=== PATIENT | female | born 1945 | race Caucasian/White ===

== ENCOUNTER → 2023-10-29 09:13 | Outpatient (REF) | payer MEDICARE, OTHER, SELFPAY ==
[2023-10-29 13:16] LABS: % Basophils 0.6 % (0-2); % Eosinophils 1.5 % (0-6); % Immature Granulocytes 0.2 % (0-0.5); % Lymphocytes 26.9 % (20.5-51.1); % Monocytes 6.6 % (1.7-9.3); % Neutrophils 64.2 % (42.2-75.2); Absolute Eosinophils 0.1 10^3/uL (0-0.7); Absolute Lymphocytes 1.7 10^3/uL (1.2-3.4); Absolute Monocytes 0.4 10^3/uL (0.1-0.6); Absolute Neutrophils 4.2 10^3/uL (1.4-6.5); Hemoglobin 14.8 g/dL (12.0-16.0); Mean Corp Hgb Conc. 34.4 g/dL (33.0-37.0); Mean Corpuscular Hgb 32.8 pg (27.0-31.0); Mean Corpuscular Volume 95.3 fL (81.0-99.0); Mean Platelet Volume 9.9 fL (7.4-10.4); Nucleated Red Blood Cells % 0 %; Platelet Count 214 10^3/uL (130-400); Red Blood Cell Count 4.51 10^6/uL (4.20-5.40); Red Cell Dist. Width 12.4 % (11.5-14.5); White Blood Cell Count 6.5 10^3/uL (4.8-10.8)
[2023-10-29 13:26] LABS: ALT (SGPT) 16 U/L (0-35); AST (SGOT) 24 U/L (14-36); Albumin 3.3 g/dl (3.5-5.0); Alkaline Phosphatase 49 U/L (38-126); Blood Urea Nitrogen 18 mg/dl (7-17); Calcium 9.3 mg/dl (8.4-10.2); Carbon Dioxide 28 mmol/L (22-30); Chloride 105 mmol/L (98-107); Glucose 84 mg/dl (70-99); HDL Cholesterol 50 mg/dl; LDL Cholesterol, Calculated 80 mg/dl; Potassium 3.8 mmol/L (3.5-5.1); Sodium 139 mmol/L (135-145); Total Bilirubin 0.7 mg/dl (0.2-1.3); Total Cholesterol 168 mg/dl (50-199); Total Protein 5.8 g/dl (6.3-8.2); Triglyceride 191 mg/dl (10-149); Very Low Density Lipoprotein 38 mg/dl (0-30); eGFR 51.11
== END ==
LOC: HWLAB 09:13
PROVIDERS: ATTENDING PHYSICIAN Family Medicine
DX: E78.00 Pure hypercholesterolemia, unspecified (principal); M81.0 Age-related osteoporosis without current pathological fracture
CPT/HCPCS: 36415; 80053; 80061; 85025

== ENCOUNTER → 2024-02-21 10:45 | Outpatient (REF) | payer MEDICARE, OTHER, SELFPAY | LOC: HWRAD 10:45 | PROVIDERS: ATTENDING PHYSICIAN Family Medicine | DX: Z12.31 Encounter for screening mammogram for malignant neoplasm of breast (principal); M89.9 Disorder of bone, unspecified; M81.0 Age-related osteoporosis without current pathological fracture | CPT/HCPCS: 77063; 77067; 77080 ==

== ENCOUNTER → 2024-06-13 10:19 | Outpatient (REF) | payer MEDICARE, OTHER, SELFPAY ==
[2024-06-13 12:21] LABS: Albumin 3.9 g/dl (3.5-5.0); Total Protein 6.3 g/dl (6.3-8.2)
== END ==
LOC: HWLAB 10:19
PROVIDERS: ATTENDING PHYSICIAN Family Medicine
DX: R79.89 Other specified abnormal findings of blood chemistry (principal); R77.0 Abnormality of albumin
CPT/HCPCS: 36415; 82040; 84155

== ENCOUNTER → 2024-07-26 11:39 | Outpatient (REF) | payer MEDICARE, OTHER, SELFPAY ==
[2024-07-26 15:54] LABS: Erythrocyte Sed Rate 9 mm/hour (0-20)
[2024-07-26 15:58] LABS: C-Reactive Protein < 5.00 mg/L (0.0-10.00)
== END ==
LOC: HWLAB 11:39
PROVIDERS: ATTENDING PHYSICIAN Internal Medicine Rheumatology; FAMILY PHYSICIAN Family Medicine
DX: M15.9 Polyosteoarthritis, unspecified (principal); M35.3 Polymyalgia rheumatica
CPT/HCPCS: 36415; 85652; 86140

== ENCOUNTER 2024-08-23 08:43 | Emergency (ER) | payer MEDICARE, OTHER, SELFPAY ==
[2024-08-23 08:55] VITALS: BP 195/124
[2024-08-23 10:22] VITALS: BMI 25.5
[2024-08-23 10:32] VITALS: BP 180/96
[2024-08-23 10:55] LABS: % Basophils 0.5 % (0-2); % Eosinophils 0.7 % (0-6); % Immature Granulocytes 0.3 % (0-0.5); % Lymphocytes 17.4 % (20.5-51.1); % Monocytes 6.1 % (1.7-9.3); Absolute Eosinophils 0.1 10^3/uL (0-0.7); Absolute Lymphocytes 1.3 10^3/uL (1.2-3.4); Absolute Monocytes 0.5 10^3/uL (0.1-0.6); Absolute Neutrophils 5.6 10^3/uL (1.4-6.5); Hematocrit 46.2 % (37.0-47.0); Hemoglobin 16.1 g/dL (12.0-16.0); Mean Corp Hgb Conc. 34.8 g/dL (33.0-37.0); Mean Corpuscular Hgb 32.1 pg (27.0-31.0); Nucleated Red Blood Cells % 0 %; Platelet Count 204 10^3/uL (130-400); Red Blood Cell Count 5.02 10^6/uL (4.20-5.40); Red Cell Dist. Width 12.7 % (11.5-14.5); White Blood Cell Count 7.5 10^3/uL (4.8-10.8)
[2024-08-23 11:01] LABS: ALT (SGPT) 17 U/L (0-35); AST (SGOT) 23 U/L (14-36); Albumin 4.1 g/dl (3.5-5.0); Alkaline Phosphatase 64 U/L (38-126); Blood Urea Nitrogen 18 mg/dl (7-17); Calcium 10.2 mg/dl (8.4-10.2); Carbon Dioxide 23 mmol/L (22-30); Chloride 108 mmol/L (98-107); Estimated Creatinine Clearance 34 ml/min; Glucose 104 mg/dl (70-99); Lipase 111 U/L (23-300); Potassium 3.8 mmol/L (3.5-5.1); Sodium 142 mmol/L (135-145); Total Bilirubin 0.6 mg/dl (0.2-1.3); Total Protein 6.8 g/dl (6.3-8.2); eGFR 56.95
[2024-08-23] MEDS: TORADOL 15 MG IV (11:02)
[2024-08-23] MEDS: NSS 500 IV (11:02)
[2024-08-23] MEDS: REGLAN 10 MG IV (11:03)
[2024-08-23 11:11] LABS: Troponin I < 0.012 ng/ml
[2024-08-23 11:50] VITALS: BP 160/82
[2024-08-23 12:00] VITALS: BP 149/78
--- NOTE | 2024-08-23 12:14 | ED.GENMED ---
History of Present Illness
General
Chief Complaint: Blood Pressure Problem
Source: patient and spouse
Exam Limitations: none
Time Seen by Provider: 08/23/24 10:33
Nursing documentation reviewed up to this point in time: agreed with
History of Present Illness
History of Present Illness:
78-year-old female past medical history of hyperlipidemia hypertension presenting to the emergency department today with concerns of elevated blood pressure with associated headache nausea some bodyaches over the past day or so. Denies any chest
pain shortness of breath numbness weakness vomiting.
Past History
Past History
ED Past Medical History: Hypercholesterolemia and Other (Polymyalgia rheumatica)
Social History
Tobacco: Non-smoker
Personal:
Living: with family
Review of Systems
Review of Systems
Allergies reviewed?: Yes
All Other Systems: ROS reviewed and negative except as documented in HPI and ROS
Phy Exam
Physical Exam
Physical Exam:
GENERAL: Alert , in no apparent distress
EYE: pupils equal and reactive
NECK: Supple, no significant adenopathy.
ENT: o/p clr, mmm.
CARDIAC: Regular rate and rhythm .
LUNGS: Clear breath sounds bilaterally, no acute respiratory distress, no wheezes/rales/rhonchi
ABDOMEN: Soft, without focal tenderness, no r/g, no cvat
NEUROLOGICAL: Alert and oriented, no focal neuro deficits
SKIN: Warm and dry, skin intact.
MUSCULOSKELETAL: No edema, well perfused.
PSYCH: Normal and appropriate interaction.
Course
Orders/Labs/Results
Orders:
Orders
08/23/24 08:57
Electrocardiogram (*1) Urgent
Reason for Study: Hypertension, Benign
EKG- Treatment ONCE
08/23/24 10:36
CMP [Comprehensive Metabolic Panel] Urgent
Complete Blood Count/With Diff Urgent
Lipase Urgent
Troponin I Urgent
08/23/24 10:52
0.9% Sodium Chloride 500 ml [Nss] 500 ml IV BOLUS
Ketorolac [Toradol] 15 mg IV NOW STA
Metoclopramide [Reglan] 10 mg IV NOW STA
08/23/24 11:54
Vital Signs- Treatment ONCE
Frequency: Once
Abnormal Lab Results
08/23/24
10:36
Hgb 16.1 H g/dL
(12.0-16.0)
MCH 32.1 H pg
(27.0-31.0)
Lymphocytes % 17.4 L %
(20.5-51.1)
Chloride 108 H mmol/L
(98-107)
BUN 18 H mg/dl
(7-17)
Glucose 104 H mg/dl
(70-99)
08/23/24 10:36
08/23/24 10:36
Vital Signs
Initial and Last Documented VS:
Initial Vital Signs
Temp Pulse Resp BP Pulse Ox
98.1 F 105 18 195/124 100
08/23/24 08:55 08/23/24 08:55 08/23/24 08:55 08/23/24 08:55 08/23/24 08:55
Last Documented Vital Signs
Temp Pulse Resp BP Pulse Ox
98.1 F 75 15 149/78 96
08/23/24 08:55 08/23/24 12:00 08/23/24 12:00 08/23/24 12:00 08/23/24 12:00
MDM/Problems Addressed
MDM/Problems Addressed:
78-year-old female presenting to the emergency department today with concerns of elevated blood pressure mild headache generalized vague diffuse symptoms. Blood pressure elevated on arrival to 190s over 120s slightly tachycardic. Patient to give
medications for headache but otherwise no emergent findings on physical examination. Blood pressure improving to 140s over 80s. Nausea improved patient in no distress patient may have some mild viral syndrome but otherwise no emergent findings
stable for outpatient management return precautions given.
*Critical Care Note
Total Time (30-74mins, 75-104mins- exclusive of procedures): Not Applicable
ED Attending Note
-
Portions of this chart may have been created with voice recognition software.� Occasional wrong word or��sound alike� substitutions may have occurred due to the inherent limitations of voice recognition software.
Discharge Plan
Departure
Patient Disposition: Home (Routine Discharge)
Date of Disposition: 08/23/24
Time of Disposition: 12:16
Patient with high blood pressure during this ER visit?: Yes
Condition: Good
Covid-19: Not Applicable
Discharge Problem:
High blood pressure
Instructions: BLOOD PRESSURE
Prescriptions:
New
metoclopramide HCl [Reglan] 10 mg tablet
10 mg PO Q6H PRN (Reason: nausea and vomiting) Qty: 7 0RF
No Action
calcium carbonate-vitamin D2 1 EACH tablet
1 ea PO BID
rosuvastatin 10 MG tablet
20 mg PO QPM
prednisone 5 MG tablet
4 mg PO DAILY
Referrals:
Nova Georges, DO [Family Provider] -
Activity Restrictions/Additional Instructions:
You came to the emergency department today with concerns of elevated blood pressure and additional symptoms. Here your blood pressure improved after symptomatic treatment. Please follow close with the primary care doctor for reassessment. Return
to the emergency department any worsening, new or concerning symptoms.
Interventions
Interventions:
*Risk Screen - Suicide Last Done: 08/23/24 08:55
*General Assessment Last Done: 08/23/24 08:55
*Neglect/Abuse Screening Last Done: 08/23/24 08:55
ED- Fall Risk Assessment Last Done: 08/23/24 10:33
*ED COVID-19 Vaccine History Last Done: 08/23/24 10:18
ED- Cardiac Assessment Last Done: 08/23/24 10:33
ED- Neurological Assessment Last Done: 08/23/24 10:33
ED- Pulmonary Assessment Last Done: 08/23/24 10:33
Discharge Date and Time
Print Language: PERSIAN
== END 2024-08-23 12:42 | disposition home or self-care (01) ==
LOC: EMR 08:43
PROVIDERS: EMERGENCY PHYSICIAN Student in an Organized Health Care Education/Training Program; FAMILY PHYSICIAN Family Medicine
DX: I10 Essential (primary) hypertension (principal); E78.00 Pure hypercholesterolemia, unspecified
CPT/HCPCS: 99284; 96374; 96375; 80053; 83690; 84484; 85025; 93005

== ENCOUNTER 2024-09-04 17:04 | Emergency (ER) | payer MEDICARE, OTHER, SELFPAY ==
[2024-09-04 17:22] VITALS: BP 184/109
--- NOTE | 2024-09-04 17:23 | ED.GENMED ---
ED Provider Triage
<Zabrina Landeros CLOSING COORDINATOR - Last Filed: 09/04/24 17:29>
-
Patient seen by provider in Triage?: Seen in Triage
Attestation: A medical screening examination has been initiated by a qualified medical provider. Based on the assessment performed at this time, it has been determined that an emergent medical condition may exist and the patient has been informed
that further medical evaluation and possible additional diagnostic testing may be needed.
HPI: 78-year-old female w h/o PMR on Prednisone 4 mg daily, HLD, was here 2 weeks ago with high blood pressure which resolved on its own. BP kept going up at home past 4-5 days prior to coming here so she saw PCP today and it was noted that she
had a blood pressure of 200/120. Head feels full, legs feel weak over 2-3 days. Feels mildly nauseous, no vomiting. Denies vision changes. Denies CP, SOB, abd pain. One episode diarrhea yesterday.
GENERAL: Alert , in no apparent distress
EYE: No visual abnormalities.
NECK: Trachea midline
ENT: No visible abnormalities.
LUNGS: No acute respiratory distress
NEUROLOGICAL: Alert and oriented
SKIN: Skin intact. No visible changes.
MUSCULOSKELETAL: Moving extremities normally
PSYCH: Normal and appropriate interaction.
This is a medical evaluation conducted in person to initiate diagnostic evaluation and provide initial therapeutics. Please see further documentation by the treating clinician.
History of Present Illness
<Zabrina Landeros, CLOSING COORDINATOR - Last Filed: 09/04/24 17:29>
General
Chief Complaint: Blood Pressure Problem
Time Seen by Provider: 09/04/24 19:43
<Vasile Cooper DO, Resident - Last Filed: 09/04/24 21:04>
General
Source: patient and spouse
History of Present Illness
History of Present Illness:
78-year-old female past medical history of hypertension, hyperlipidemia and polymyalgia rheumatica presents from her PCP office for elevated blood pressure. Patient reports pressure of 200/120 during her PCP visit. She has a remote history of
hypertension where she was treated with amlodipine approximately 2 years ago, however this was discontinued, and she does not take any antihypertensive medications currently. She also has a recent ED visit for elevated blood pressures. Patient
endorses unilateral headache, dizziness and bilateral leg weakness. She denies vision change, chest pain or abdominal pain.
Past History
<Zabrina Landeros, CLOSING COORDINATOR - Last Filed: 09/04/24 17:29>
Past History
ED Past Medical History: Hypercholesterolemia and Other (Polymyalgia rheumatica)
Social History
Tobacco: Non-smoker
Personal:
Living: with family
<Vasile Cooper DO, Resident - Last Filed: 09/04/24 21:04>
Past History
ED Past Medical History: HTN
Review of Systems
<Vasile Cooper DO, Resident - Last Filed: 09/04/24 21:04>
Review of Systems
Constitutional: Reports no symptoms
Respiratory: Reports no symptoms
Cardiac: Reports no symptoms
ABD/GI: Reports no symptoms
Musculoskeletal: Reports other (Bilateral lower extremity weakness)
Neurological: Reports headache (Unilateral right-sided headache)
Phy Exam
<Vasile Cooper DO, Resident - Last Filed: 09/04/24 21:04>
General Physical Exam
General Presentation: no apparent distress
General Skin: warm and dry
General Mental: alert
Cardiovascular Exam
Cardiovascular Exam: regular rate/rhythm, no edema, no JVD and no murmur
Pulmonary Exam
Pulmonary Exam: lungs clear
Neurological Exam
Neurological Exam: alert, oriented x3, no motor deficits and no sensory deficits
Course
<Zabrina Landeros, CLOSING COORDINATOR - Last Filed: 09/04/24 17:29>
Orders/Labs/Results
Orders:
Orders
09/04/24 17:26
Electrocardiogram (*1) Urgent
Reason for Study: Hypertension, Benign
EKG- Treatment ONCE
09/04/24 17:28
CR Chest - 2 Views Urgent
Comment:
Reason For Exam: hypertensive urgency
09/04/24 17:36
Complete Blood Count/With Diff Urgent
Comprehensive Metabolic Panel Urgent
09/04/24 20:04
Amlodipine [Norvasc] 5 mg PO NOW STA
HydrALAZINE [Apresoline] 5 mg IV NOW STA
Abnormal Lab Results
09/04/24
17:36
MCH 31.6 H pg
(27.0-31.0)
Absolute Neuts (auto) 7.7 H 10^3/uL
(1.4-6.5)
Neutrophils % 83.0 H %
(42.2-75.2)
Lymphocytes % 12.4 L %
(20.5-51.1)
BUN 23 H mg/dl
(7-17)
Glucose 103 H mg/dl
(70-99)
09/04/24 17:36
09/04/24 17:36
Vital Signs
Initial and Last Documented VS:
Initial Vital Signs
Temp Pulse Resp BP Pulse Ox
98.2 F 102 18 184/109 97
09/04/24 17:22 09/04/24 17:22 09/04/24 17:22 09/04/24 17:22 09/04/24 17:22
Last Documented Vital Signs
Temp Pulse Resp BP Pulse Ox
98.6 F 80 18 166/93 96
09/04/24 19:25 09/04/24 20:36 09/04/24 17:22 09/04/24 22:00 09/04/24 22:00
<Vasile Cooper DO, Resident - Last Filed: 09/04/24 21:04>
Orders/Labs/Results
Orders:
Orders
09/04/24 17:26
Electrocardiogram (*1) Urgent
Reason for Study: Hypertension, Benign
EKG- Treatment ONCE
09/04/24 17:28
CR Chest - 2 Views Urgent
Comment:
Reason For Exam: hypertensive urgency
09/04/24 17:36
Complete Blood Count/With Diff Urgent
Comprehensive Metabolic Panel Urgent
09/04/24 20:04
Amlodipine [Norvasc] 5 mg PO NOW STA
HydrALAZINE [Apresoline] 5 mg IV NOW STA
Abnormal Lab Results
09/04/24
17:36
MCH 31.6 H pg
(27.0-31.0)
Absolute Neuts (auto) 7.7 H 10^3/uL
(1.4-6.5)
Neutrophils % 83.0 H %
(42.2-75.2)
Lymphocytes % 12.4 L %
(20.5-51.1)
BUN 23 H mg/dl
(7-17)
Glucose 103 H mg/dl
(70-99)
09/04/24 17:36
09/04/24 17:36
Vital Signs
Initial and Last Documented VS:
Initial Vital Signs
Temp Pulse Resp BP Pulse Ox
98.2 F 102 18 184/109 97
09/04/24 17:22 09/04/24 17:22 09/04/24 17:22 09/04/24 17:22 09/04/24 17:22
Last Documented Vital Signs
Temp Pulse Resp BP Pulse Ox
98.6 F 80 18 166/93 96
09/04/24 19:25 09/04/24 20:36 09/04/24 17:22 09/04/24 22:00 09/04/24 22:00
<Reji Daniel, DO - Last Filed: 09/04/24 22:10>
Orders/Labs/Results
Orders:
Orders
09/04/24 17:26
Electrocardiogram (*1) Urgent
Reason for Study: Hypertension, Benign
EKG- Treatment ONCE
09/04/24 17:28
CR Chest - 2 Views Urgent
Comment:
Reason For Exam: hypertensive urgency
09/04/24 17:36
Complete Blood Count/With Diff Urgent
Comprehensive Metabolic Panel Urgent
09/04/24 20:04
Amlodipine [Norvasc] 5 mg PO NOW STA
HydrALAZINE [Apresoline] 5 mg IV NOW STA
Abnormal Lab Results
09/04/24
17:36
MCH 31.6 H pg
(27.0-31.0)
Absolute Neuts (auto) 7.7 H 10^3/uL
(1.4-6.5)
Neutrophils % 83.0 H %
(42.2-75.2)
Lymphocytes % 12.4 L %
(20.5-51.1)
BUN 23 H mg/dl
(7-17)
Glucose 103 H mg/dl
(70-99)
09/04/24 17:36
09/04/24 17:36
Vital Signs
Initial and Last Documented VS:
Initial Vital Signs
Temp Pulse Resp BP Pulse Ox
98.2 F 102 18 184/109 97
09/04/24 17:22 09/04/24 17:22 09/04/24 17:22 09/04/24 17:22 09/04/24 17:22
Last Documented Vital Signs
Temp Pulse Resp BP Pulse Ox
98.6 F 80 18 166/93 96
09/04/24 19:25 09/04/24 20:36 09/04/24 17:22 09/04/24 22:00 09/04/24 22:00
<Vasile Cooper DO, Resident - Last Filed: 09/04/24 21:04>
MDM/Problems Addressed
Differential Diagnosis Includes:
Hypertensive urgency versus migraine
MDM/Problems Addressed:
#Hypertensive urgency versus migraine
Patient reports elevated blood pressure of 200/120 in PCP office
Reports that at home her blood pressures are well-controlled and she does not take any antihypertensives at baseline
Currently endorsing dizziness, unilateral headache and leg weakness, symptoms are potentially related to her hypertension
Denies chest pain, shortness of breath or abdominal pain
patient's headache is unilateral however she is able to function and tolerate bright lights, Suspicion for migraine is low.
Will check CXR, EKG, CBC and CMP
CXR, EKG, CBC and CMP did not show any evidence of endorgan damage
One-time dose amlodipine 5 mg p.o., consider IV hydralazine as needed
Will reevaluate blood pressure and administer antihypertensives as needed
<Reji Daniel DO - Last Filed: 09/04/24 22:10>
*Critical Care Note
Total Time (30-74mins, 75-104mins- exclusive of procedures): Not Applicable
<Reji Daniel DO - Last Filed: 09/04/24 22:10>
Update Note
Update Note:
10:10 PM update blood pressure improved Rx for Norvasc sent to her pharmacy
ED Attending Note
<Zabrina Landeros, CLOSING COORDINATOR - Last Filed: 09/04/24 17:29>
-
Portions of this chart may have been created with voice recognition software.� Occasional wrong word or��sound alike� substitutions may have occurred due to the inherent limitations of voice recognition software.
<Reji Daniel DO - Last Filed: 09/04/24 22:10>
ED Attending Note
Patient seen and examined by attending physician: Yes
I performed a history and physical exam of patient and discussed management with resident, I reviewed resident's note and agree with documented findings and plan of care.: Yes
ED Attending Note:
Seen with resident, agree with assessment and plan nontoxic 78-year-old female some dizziness mild headache blood pressure up history of the same no longer on meds has a nonfocal neurologic exam electrolytes are noted we will place back on her
Norvasc his blood pressure is already coming down here without any intervention
Discharge Plan
Departure
Patient Disposition: Home (Routine Discharge)
Date of Disposition: 09/04/24
Time of Disposition: 22:09
Patient with high blood pressure during this ER visit?: Yes
Condition: Good
Discharge Problem:
HTN (hypertension)
Instructions: BLOOD PRESSURE
Prescriptions:
New
amlodipine [Norvasc] 5 mg tablet
5 mg PO DAILY Qty: 30 2RF
No Action
calcium carbonate-vitamin D2 1 EACH tablet
1 ea PO BID
rosuvastatin 10 MG tablet
20 mg PO QPM
prednisone 5 MG tablet
4 mg PO DAILY
metoclopramide HCl [Reglan] 10 mg tablet
10 mg PO Q6H PRN (Reason: nausea and vomiting) Qty: 7 0RF
Referrals:
Nova Georges, [Family Provider] - Follow up in 2-3 days
Activity Restrictions/Additional Instructions:
Start Norvasc 5 mg once a day take it at the same time every day
Interventions
Interventions:
*Risk Screen - Suicide Last Done: 09/04/24 17:22
*General Assessment Last Done: 09/04/24 17:22
*Neglect/Abuse Screening Last Done: 09/04/24 17:22
*ED COVID-19 Vaccine History Last Done: 09/04/24 20:33
ED- Cardiac Assessment Last Done: 09/04/24 20:33
ED- Neurological Assessment Last Done: 09/04/24 20:33
ED- Pulmonary Assessment Last Done: 09/04/24 20:33
Discharge Date and Time
Print Language: GUAMANIAN
[2024-09-04 17:46] LABS: % Basophils 0.3 % (0-2); % Eosinophils 0.2 % (0-6); % Immature Granulocytes 0.3 % (0-0.5); % Lymphocytes 12.4 % (20.5-51.1); % Monocytes 3.8 % (1.7-9.3); Absolute Lymphocytes 1.2 10^3/uL (1.2-3.4); Absolute Monocytes 0.4 10^3/uL (0.1-0.6); Absolute Neutrophils 7.7 10^3/uL (1.4-6.5); Hematocrit 46.6 % (37.0-47.0); Hemoglobin 15.9 g/dL (12.0-16.0); Mean Corp Hgb Conc. 34.1 g/dL (33.0-37.0); Mean Corpuscular Hgb 31.6 pg (27.0-31.0); Mean Corpuscular Volume 92.6 fL (81.0-99.0); Mean Platelet Volume 9.1 fL (7.4-10.4); Nucleated Red Blood Cells % 0 %; Platelet Count 266 10^3/uL (130-400); Red Blood Cell Count 5.03 10^6/uL (4.20-5.40); Red Cell Dist. Width 12.5 % (11.5-14.5); White Blood Cell Count 9.3 10^3/uL (4.8-10.8)
[2024-09-04 18:12] LABS: ALT (SGPT) 17 U/L (0-35); AST (SGOT) 24 U/L (14-36); Albumin 4.2 g/dl (3.5-5.0); Alkaline Phosphatase 55 U/L (38-126); Blood Urea Nitrogen 23 mg/dl (7-17); Calcium 10.2 mg/dl (8.4-10.2); Carbon Dioxide 26 mmol/L (22-30); Chloride 106 mmol/L (98-107); Glucose 103 mg/dl (70-99); Potassium 4.7 mmol/L (3.5-5.1); Sodium 141 mmol/L (135-145); Total Bilirubin 0.5 mg/dl (0.2-1.3); eGFR 56.95
[2024-09-04 19:25] VITALS: BP 185/107
[2024-09-04 20:00] VITALS: BP 184/100
[2024-09-04] MEDS: NORVASC 5 MG PO (20:36)
[2024-09-04 21:18] VITALS: BP 174/105
[2024-09-04 21:54] VITALS: BP 173/109
[2024-09-04 22:00] VITALS: BP 166/93
== END 2024-09-04 22:41 | disposition home or self-care (01) ==
LOC: EMR 17:04
PROVIDERS: Registered Nurse; EMERGENCY PHYSICIAN Emergency Medicine; FAMILY PHYSICIAN Family Medicine
DX: I10 Essential (primary) hypertension (principal); E78.00 Pure hypercholesterolemia, unspecified; M35.3 Polymyalgia rheumatica
CPT/HCPCS: 99283; 71046; 80053; 85025; 93005

== ENCOUNTER → 2025-03-15 11:37 | Outpatient (REF) | payer MEDICARE, OTHER, SELFPAY ==
[2025-03-15 16:33] LABS: C-Reactive Protein < 5.00 mg/L (0.0-10.00)
[2025-03-15 16:34] LABS: Erythrocyte Sed Rate 2 mm/hour (0-20)
== END ==
LOC: HWLAB 11:37
PROVIDERS: ATTENDING PHYSICIAN Internal Medicine Rheumatology; FAMILY PHYSICIAN Family Medicine
DX: M35.3 Polymyalgia rheumatica (principal)
CPT/HCPCS: 36415; 85652; 86140

== ENCOUNTER → 2025-03-20 09:37 | Outpatient (REF) | payer MEDICARE, OTHER, SELFPAY | LOC: HWWDC 09:37 | PROVIDERS: ATTENDING PHYSICIAN Family Medicine | DX: Z12.31 Encounter for screening mammogram for malignant neoplasm of breast (principal) | CPT/HCPCS: 77063; 77067 ==

== ENCOUNTER → 2025-05-29 12:41 | Outpatient (REF) | payer MEDICARE, OTHER, SELFPAY | LOC: PAVMRI 12:41 | PROVIDERS: ATTENDING PHYSICIAN Family Medicine | DX: G89.29 Other chronic pain (principal); M54.41 Lumbago with sciatica, right side; M54.42 Lumbago with sciatica, left side | CPT/HCPCS: 72148 ==

== ENCOUNTER → 2025-05-31 08:00 | Outpatient (REF) | payer MEDICARE, OTHER, SELFPAY ==
[2025-05-31 09:37] LABS: Hematocrit 43.8 % (37.0-47.0); Hemoglobin 14.6 g/dL (12.0-16.0); Mean Corp Hgb Conc. 33.3 g/dL (33.0-37.0); Mean Corpuscular Volume 90.7 fL (81.0-99.0); Nucleated Red Blood Cells % 0 %; Platelet Count 248 10^3/uL (130-400); Red Cell Dist. Width 12.6 % (11.5-14.5)
[2025-05-31 10:50] LABS: ALT (SGPT) 16 U/L (0-35); AST (SGOT) 20 U/L (14-36); Albumin 4.0 g/dl (3.5-5.0); Alkaline Phosphatase 53 U/L (38-126); Blood Urea Nitrogen 25 mg/dl (7-17); Calcium 10.2 mg/dl (8.4-10.2); Carbon Dioxide 26 mmol/L (22-30); Chloride 108 mmol/L (98-107); Glucose 87 mg/dl (70-99); HDL Cholesterol 56 mg/dl; LDL Cholesterol, Calculated 99 mg/dl; Potassium 4.0 mmol/L (3.5-5.1); Sodium 139 mmol/L (135-145); Total Protein 6.9 g/dl (6.3-8.2); Very Low Density Lipoprotein 37 mg/dl (0-30); eGFR > 60.00
== END ==
LOC: HWLAB 08:00
PROVIDERS: ATTENDING PHYSICIAN Family Medicine
DX: Z00.00 Encounter for general adult medical examination without abnormal findings (principal); N18.31 Chronic kidney disease, stage 3a; Z78.0 Asymptomatic menopausal state; M35.3 Polymyalgia rheumatica; I10 Essential (primary) hypertension
CPT/HCPCS: 36415; 80053; 80061; 85025

== ENCOUNTER 2025-06-07 13:07 | Emergency (ER) | payer MEDICARE, OTHER, SELFPAY ==
[2025-06-07 13:12] VITALS: BP 175/123
[2025-06-07 13:38] LABS: Urine Character Clear (Clear)
[2025-06-07 13:40] LABS: Hematocrit 46.5 % (37.0-47.0); Hemoglobin 15.6 g/dL (12.0-16.0); Mean Corp Hgb Conc. 33.5 g/dL (33.0-37.0); Mean Corpuscular Volume 89.8 fL (81.0-99.0); Nucleated Red Blood Cells % 0 %; Platelet Count 272 10^3/uL (130-400); Red Cell Dist. Width 12.7 % (11.5-14.5)
[2025-06-07 13:52] LABS: ALT (SGPT) 17 U/L (0-35); AST (SGOT) 21 U/L (14-36); Albumin 4.5 g/dl (3.5-5.0); Alkaline Phosphatase 51 U/L (38-126); Blood Urea Nitrogen 23 mg/dl (7-17); Calcium 11.0 mg/dl (8.4-10.2); Carbon Dioxide 24 mmol/L (22-30); Chloride 106 mmol/L (98-107); Glucose 113 mg/dl (70-99); Lipase 153 U/L (23-300); Potassium 4.4 mmol/L (3.5-5.1); Sodium 138 mmol/L (135-145); Total Protein 7.6 g/dl (6.3-8.2); eGFR 56.60
--- NOTE | 2025-06-07 15:51 | ED.GENMED ---
History of Present Illness
General
Chief Complaint: Abdominal Pain
Source: patient
Exam Limitations: none
Time Seen by Provider: 06/07/25 15:50
Nursing documentation reviewed up to this point in time: agreed with
History of Present Illness
History of Present Illness:
79-year-old female with history of HTN, HLD, GERD, PMR presents with pain in the right side of her abdomen. She reports that the pain started approximately 24 hours ago, gradual onset. Took Tylenol, slept well, awakened 3 a.m. with the pain that has
remained constant 5/10. Worse with certain movements. Denies nausea, vomiting, diarrhea, or constipation. Denies fever. She denies any trouble urinating, and her bowel movements are normal.
Had MRI performed earlier in the week for back pain incidentally revealed an issue with her ureter, specifically on the right side. This finding requires further investigation through a CT scan of the abdomen/pelvis which she had scheduled for
tomorrow.
Past History
Past History
ED Past Medical History: HTN, Hypercholesterolemia and Other (Polymyalgia rheumatica)
ED Past Surgical History: Orthopedic and Tonsilectomy
Social History
Tobacco: Non-smoker
Personal:
Living: with family
Review of Systems
Review of Systems
Allergies reviewed?: Yes
All Other Systems: ROS reviewed and negative except as documented in HPI and ROS
Phy Exam
Physical Exam
Physical Exam:
GENERAL: No acute distress. A&Ox3.
CONSTITUTIONAL: Afebrile.
EYES: clear, conjunctivae normal
ENMT: moist mucus membranes, Pharynx nl
RESPIRATORY: Regular respirations, nonlabored, lungs clear.
CARDIOVASCULAR: Regular rate and rhythm, no murmurs, no rubs.
GI: Soft, tender right side abdomen, no guarding, nondistended, normal BS
MUSCULOSKELETAL: Moves with ease. Well perfused.
SKIN: Warm, dry, pink
PSYCH: Normal mood and affect. Well kept, interactive and appropriate
NEUROLOGIC: Awake, alert and oriented. No focal neurological deficits
Course
Orders/Labs/Results
Orders:
Orders
06/07/25 13:21
Complete Blood Count/With Diff Urgent
Comprehensive Metabolic Panel Urgent
Lipase Urgent
Urinalysis Reflex To Culture Urgent
Date Specimen was Collected: 06/07/25
Time Specimen was Collected: 13:12
06/07/25 15:57
CT Abd/Pel (IV only)-DH only Urgent
Comment:
Reason For Exam: RLQ pain
0.9% Sodium Chloride 1000 ml [Nss] 1,000 ml IV BOLUS
Abnormal Lab Results
06/07/25
13:21
WBC 11.3 H 10^3/uL
(4.8-10.8)
Abs Immat Gran (auto) 0.1 H 10^3/uL
(0-0.05)
Absolute Neuts (auto) 9.1 H 10^3/uL
(1.4-6.5)
Neutrophils % 80.8 H %
(42.2-75.2)
Lymphocytes % 15.3 L %
(20.5-51.1)
BUN 23 H mg/dl
(7-17)
Glucose 113 H mg/dl
(70-99)
Calcium 11.0 H mg/dl
(8.4-10.2)
06/07/25 13:21
06/07/25 13:21
Vital Signs
Initial and Last Documented VS:
Initial Vital Signs
Temp Pulse Resp BP Pulse Ox
98 F 104 18 175/123 96
06/07/25 13:12 06/07/25 13:12 06/07/25 13:12 06/07/25 13:12 06/07/25 13:12
Last Documented Vital Signs
Temp Pulse Resp BP Pulse Ox
98 F 86 37 170/82 98
06/07/25 13:12 06/07/25 18:02 06/07/25 18:02 06/07/25 18:05 06/07/25 17:00
MDM/Problems Addressed
Differential Diagnosis Includes:
kidney stone, UTI/pyelonephritis,
MDM/Problems Addressed:
79-year-old female with history of HTN, HLD, GERD, PMR presents with pain in the right side of her abdomen. She reports that the pain started approximately 24 hours ago, gradual onset. Took Tylenol, slept well, awakened 3 a.m. with the pain that has
remained constant 5/10. Worse with certain movements. Denies nausea, vomiting, diarrhea, or constipation. Denies fever. She denies any trouble urinating, and her bowel movements are normal.
Had MRI performed earlier in the week for back pain incidentally revealed an issue with her ureter, specifically on the right side. This finding requires further investigation through a CT scan of the abdomen/pelvis which she had scheduled for
tomorrow.
Afebrile, NAD
MRI LS spine from 05/30 reviewed: IMPRESSION: Marked dilation of the right pelvicalyceal system and right ureter, with significantly tortuous right ureter. The dilated right ureter extends into the pelvis, extending inferior to the included field of
view. Please correlate with any previous imaging examinations, perhaps at other institutions. If no previous examinations can be obtained, consider further evaluation to begin with CT of the abdomen and pelvis.
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 See above narrative for detailed findings at each level.
16:15 p.m.
CBC, CMP normal. Unremarkable. 12/10 GFR 6.6
U/A neg
1710:
CT abdomen pelvis with IV only contrast radiology report read: IMPRESSION:
Severe right hydronephrosis and hydroureter with marked dilatation of the entire right ureter and the right renal collecting system. Findings appear chronic with resultant severe right renal cortical thinning/atrophy. No CT evidence for an
obstructing ureteral calculus or mass.
Results discussed with patient and , all questions answered
Consulted urology Dr. Obrien. Labs and CT report sent to him.
He agrees patient okay for discharge, requests that the patient call the office in the morning for follow-up.
*Pulse Oximetry
SaO2: 96
Oxygen Mode of Delivery: Room air
Patient hypoxic: not evaluated
*Critical Care Note
Total Time (30-74mins, 75-104mins- exclusive of procedures): Not Applicable
ED Attending Note
-
Portions of this chart may have been created with voice recognition software.� Occasional wrong word or��sound alike� substitutions may have occurred due to the inherent limitations of voice recognition software.
Discharge Plan
Departure
Patient Disposition: Home (Routine Discharge)
Date of Disposition: 06/07/25
Time of Disposition: 17:32
Patient with high blood pressure during this ER visit?: No
Condition: Good
Discharge Problem:
Abdominal pain, Hydronephrosis of right kidney, Hydroureter on right
Instructions: Hydronephrosis in adults, Abdominal Pain
Prescriptions:
No Action
calcium carbonate-vitamin D2 1 EACH tablet
1 ea PO BID
rosuvastatin 10 MG tablet
20 mg PO QPM
prednisone 5 MG tablet
4 mg PO DAILY
metoclopramide HCl [Reglan] 10 mg tablet
10 mg PO Q6H PRN (Reason: nausea and vomiting) Qty: 7 0RF
amlodipine [Norvasc] 5 mg tablet
5 mg PO DAILY Qty: 30 2RF
Referrals:
Matthew Obrien MD [Active, Urology] - Tomorrow
UNKNOWN - PT DOES,NOT KNOW [Family Provider]
Activity Restrictions/Additional Instructions:
As we discussed, call the urology office tomorrow morning and make next available appointment.
Tylenol as needed for pain.
Interventions
Interventions:
*Risk Screen - Suicide Last Done: 06/07/25 16:15
*General Assessment Last Done: 06/07/25 16:15
*Neglect/Abuse Screening Last Done: 06/07/25 13:12
*ED- Fall Risk Assessment Last Done: 06/07/25 16:13
*ED COVID-19 Vaccine History Last Done: 06/07/25 16:13
*Nursing Disposition Last Done: 06/07/25 18:24
CY-Glnoym-Hbhtaxxetn Assessment Last Done: 06/07/25 16:16
Discharge Date and Time
Discharge Date/Time: 06/07/25 18:36
Print Language: [id number]
[2025-06-07 16:05] VITALS: BMI 25.6
[2025-06-07 16:07] VITALS: BP 190/87
[2025-06-07 16:11] VITALS: BP 190/87
[2025-06-07] MEDS: NSS 1000 IV (16:25)
[2025-06-07 17:00] VITALS: BP 176/86
[2025-06-07 18:05] VITALS: BP 170/82
== END 2025-06-07 18:36 | disposition home or self-care (01) ==
LOC: EMR 13:07
PROVIDERS: Emergency Medicine; EMERGENCY PHYSICIAN Student in an Organized Health Care Education/Training Program
DX: N13.30 Unspecified hydronephrosis (principal); N13.4 Hydroureter; I10 Essential (primary) hypertension; E78.00 Pure hypercholesterolemia, unspecified; M35.3 Polymyalgia rheumatica; K21.9 Gastro-esophageal reflux disease without esophagitis; N26.1 Atrophy of kidney (terminal); M51.369 Other intervertebral disc degeneration, lumbar region without mention of lumbar back pain or lower extremity pain
CPT/HCPCS: 99284; 96360; 74177; 80053; 81003; 83690; 85025; Q9967

== ENCOUNTER → 2025-07-30 08:15 | Outpatient (REF) | payer MEDICARE, OTHER, SELFPAY ==
[2025-07-30 10:25] LABS: C-Reactive Protein < 5.00 mg/L (0.0-10.00)
== END ==
LOC: HWLAB 08:15
PROVIDERS: ATTENDING PHYSICIAN Internal Medicine Rheumatology; FAMILY PHYSICIAN Family Medicine
DX: M35.3 Polymyalgia rheumatica (principal)
CPT/HCPCS: 36415; 85652; 86140